=== PATIENT | male | born 1995 | race Caucasian/White ===

== ENCOUNTER 2016-11-12 19:50 | Emergency (ER) | payer BC, OTHER ==
--- NOTE | 2016-11-12 19:52 | PDOC ---
History of Present Illness - General History Source: Patient Exam Limitations: No Limitations - History of Present Illness Initial Comments: 11/12/16 20:17 The patient is a 21 year old male, with no significant past medical history, who presents to the emergency department today complaining of a laceration on left 5th finger that occurred 1 hr ago. Patient states he was doing mechanical work on a car in his garage when he stumbled and hit his left fifth finger on a harvey saw that was sitting on the shelf. He came in today because he doesnt recall his last tetanus shot. Patient states throbbing feeling in finger. Not swollen Denies LOC, fall. Denies fevers, chills, nausea, vomiting Denies numbness or tingling in extremities . Allergies: none reported Surgical Hx: Denies past surgeries Social Hx: Half a pack a day x2 years. Social drinker. Denies illicit drug use. 11/12/16 20:21 Timing/Duration: reports: just prior to arrival <Amanda Johnson - Last Filed: 11/12/16 20:21> <Sybil Davenport - Last Filed: 11/13/16 05:34> - General Chief Complaint: Injury Stated Complaint: I NEED A TETANUS SHOT Time Seen by Provider: 11/12/16 19:51 Past History <Amanda Johnson - Last Filed: 11/12/16 20:21> <Sybil Davenport - Last Filed: 11/13/16 05:34> - Past Medical History Allergies/Adverse Reactions: Allergies Allergy/AdvReac Type Severity Reaction Status Date / Time No Known Allergies Allergy Verified 11/12/16 19:51 Home Medications: Ambulatory Orders NK [No Known Home Medication] 11/12/16 Review of Systems - Review of Systems Able to Perform ROS?: Yes Comments:: 11/12/16 20:18 CONSTITUTIONAL: Absent: fever, no chills, no fatigue EYES: Absent: visual changes ENT: Absent: ear pain, no sore throat CARDIOVASCULAR: Absent: chest pain, no palpitations RESPIRATORY: Absent: cough, no SOB GI: Absent: abdominal pain, no nausea, no vomiting, no constipation, no diarrhea GENITOURINARY: Absent: dysuria, no frequency, no hematuria MUSCULOSKELETAL: Absent: back pain, no arthralgia, no myalgia SKIN: Present: small laceration on left fifth finger without active bleeding Absent: rash NEURO: Absent: headache <Amanda Johnson - Last Filed: 11/12/16 20:21> *Physical Exam - Vital Signs Last Vital Signs Temp Pulse Resp BP Pulse Ox 98.7 F 69 16 133/70 100 11/12/16 19:51 11/12/16 19:51 11/12/16 19:51 11/12/16 19:51 11/12/16 19:51 - Physical Exam Comments: 11/12/16 20:19 GENERAL: The patient is awake, alert, and fully oriented, in no acute distress. HEAD: Normal with no signs of trauma. EYES: Pupils equal, round and reactive to light, extraocular movements intact, sclera anicteric, conjunctiva clear with no pallor. ENT: Ears normal, nares patent, oropharynx clear without exudates. Moist mucous membranes. NECK: Normal range of motion, supple without lymphadenopathy, JVD, or masses. LUNGS: Breath sounds equal, clear to auscultation bilaterally. No crackles. HEART: Regular rate and rhythm, normal S1 and S2 without murmur or rub. ABDOMEN: Soft/nontender/nondistended. BS wnl. No guarding or rebound. No palpable masses. No hepatosplenomegaly. EXTREMITIES: Normal range of motion, no edema. No clubbing or cyanosis. No cords, erythema, or tenderness. NEUROLOGICAL: Cranial nerves II through XII grossly intact. Normal speech, normal gait. PSYCH: Normal mood, normal affect. SKIN: + 2mm superficial non bleeding laceration at ulnar aspect of the distal phalanx of the left fifth finger. Warm, Dry, normal turgor, no rashes or lesions noted. Vascular Pulses: Femoral (R): 4+, Femoral (L): 4+, Carotid (R): 4+, Carotid (L) : 4+, Dorsalis-Pedis (R): 4+, Doralis-Pedis (L): 4+ <Amanda Johnson - Last Filed: 11/12/16 20:21> ED Treatment Course - Medications Given in the ED: ED Medications Discontinued Medications Generic Name Dose Route Start Last Admin Trade Name Freq PRN Reason Stop Dose Admin Diphtheria/Tetanus/Acell Pertussis 0.5 ml 11/12/16 20:08 11/12/16 20:10 Boostrix - IM 11/12/16 20:09 0.5 ml .ONCE ONE Administration <Amanda Johnson - Last Filed: 11/12/16 20:21> Progress Note - Progress Note Progress Note: Documentation has been prepared under my direction and personally reviewed by me in its entirety. I attest that this documented accurately reflects all work, treatment, procedures and medical decision making performed by me. <Sybil Davenport - Last Filed: 11/13/16 05:34> Medical Decision Making - Medical Decision Making As noted above, this 21-year-old man presents with a small, superficial wound to the left fifth finger, sustained when he fell and fifth finger contacted an old harvey saw. No other injury sustained. Patient presents here because he is unsure when his last tetanus immunization was. Physical exam as noted above. Wound was cleansed with sterile normal saline bacitracin/Band-Aid applied. Boostrix 0.5 mL administered IM. Patient instructed to return to the emergency room if he has any difficulty with the healing of the small laceration <Sybil Davenport - Last Filed: 11/13/16 05:34> *DC/Admit/Observation/Transfer - Attestations Scribe Attestion: 11/12/16 20:20 Documentation prepared by MARILEE Hayward, acting as registered medical transcriptionist for Sybil Davenport MD. <Amanda Johnson - Last Filed: 11/12/16 20:21> <Sybil Davenport - Last Filed: 11/13/16 05:34> Diagnosis at time of Disposition: Superficial laceration - Discharge Dispostion Disposition: HOME Condition at time of disposition: Stable - Patient Instructions Printed Discharge Instructions: Tetanus, Diphtheria, Pertussis (Tdap) Vaccine Additional Instructions: neosporin/bacitracin with bandaid to cut for the next 2 days after 2 days, keep wound open return or see your doctor if area becomes red/swollen/tender
[2016-11-12 20:02] VITALS: BP 133/70; PULSE 69; TEMP 98.7; BMI 31.4
[2016-11-12] MEDS ORDERED: DIPHTH,PERTUSS(ACELL),TET 0.5 ML DISP.SYRIN IM ONE (20:08)
== END 2016-11-12 20:29 | disposition home or self-care (01) ==
LOC: FER 19:50
PROC: 3E0234Z Introduction of Serum, Toxoid and Vaccine into Muscle, Percutaneous Approach (ICD-10-PCS; principal; 2016-11-12)
DX: S61.217A Laceration without foreign body of left little finger without damage to nail, initial encounter (principal); W22.8XXA Striking against or struck by other objects, initial encounter; Y93.89 Activity, other specified; Y92.59 Other trade areas as the place of occurrence of the external cause
CPT/HCPCS: 90715; 99281-25

== ENCOUNTER 2018-06-28 20:12 | Emergency (ER) | payer BC ==
[2018-06-28] MEDS ORDERED: KETOROLAC TROMETHAMINE 15 MG/ML VIAL IVPUSH ONE (20:18)
--- NOTE | 2018-06-28 20:19 | PDOC ---
History of Present Illness - General History Source: Patient Exam Limitations: No Limitations - History of Present Illness Initial Comments: 06/28/18 20:46 The patient is a 22 year old male with no past medical history here today for evaluation of left flank pain. The patient reports that his left flank was intermittent but became more constant and radiated from his left flank down to his groin area with the worst pain being today around 5 PM. He reports taking 3 regular strength aspirin prior to his arrival to the ED and notes that his pain has subsided mildly. He notes a similar pain that occurred three years and states that he was diagnosed with an UTI then. Patient denies headache, lightheadedness. Denies fever, chills. Denies chest pain, shortness of breath. Denies nausea, vomiting, diarrhea, abdominal pain. Denies urinary symptoms. Allergies: NKA Social history: Patient reports quitting tobacco use 1 year ago and quitting juul use 5 days ago. <Jose Ram - Last Filed: 06/28/18 20:46> <Dameon Walls - Last Filed: 06/29/18 03:47> - General Chief Complaint: Pain Stated Complaint: LEFT FLANK PAIN Time Seen by Provider: 06/28/18 20:18 Past History <Jose Ram - Last Filed: 06/28/18 20:46> - Past Medical History COPD: No Other medical history: Pt denies - Suicide/Smoking/Psychosocial Hx Smoking History: Former smoker Have you smoked in the past 12 months: Yes Number of Cigarettes Smoked Daily: 10 If you are a former smoker, when did you quit?: 1 yr Information on smoking cessation initiated: No 'Breaking Loose' booklet given: 11/12/16 Hx Alcohol Use: No Drug/Substance Use Hx: No Substance Use Type: None <Dameon Walls - Last Filed: 06/29/18 03:47> - Past Medical History Allergies/Adverse Reactions: Allergies Allergy/AdvReac Type Severity Reaction Status Date / Time No Known Allergies Allergy Verified 06/28/18 20:13 Home Medications: Ambulatory Orders Naproxen 500 mg PO BID PRN #12 tablet 06/28/18 Review of Systems - Review of Systems Able to Perform ROS?: Yes Comments:: 06/28/18 20:46 GENERAL/CONSTITUTIONAL: No fever or chills. No weakness. HEAD, EYES, EARS, NOSE AND THROAT: No change in vision. No ear pain or discharge. No sore throat. CARDIOVASCULAR: No chest pain or shortness of breath. RESPIRATORY: No cough, wheezing, or hemoptysis. GASTROINTESTINAL: No nausea, vomiting, diarrhea or constipation. GENITOURINARY: No dysuria, frequency, or change in urination. MUSCULOSKELETAL: +left flank pain. No joint or muscle swelling or pain. No neck. SKIN: No rash NEUROLOGIC: No headache, vertigo, loss of consciousness, or change in strength/ sensation. ENDOCRINE: No increased thirst. No abnormal weight change. HEMATOLOGIC/LYMPHATIC: No anemia, easy bleeding, or history of blood clots. ALLERGIC/IMMUNOLOGIC: No hives or skin allergy. <Jose Ram - Last Filed: 06/28/18 20:46> *Physical Exam - Vital Signs Last Vital Signs Temp Pulse Resp BP Pulse Ox 98.0 F 71 18 147/92 99 06/28/18 20:14 06/28/18 20:14 06/28/18 20:14 06/28/18 20:14 06/28/18 20:14 - Physical Exam Comments: 06/28/18 20:36 GENERAL: Awake, alert, and fully oriented, in no acute distress HEAD: No signs of trauma EYES: PERRLA, EOMI, sclera anicteric, conjunctiva clear ENT: Auricles normal inspection, hearing grossly normal, nares patent, oropharynx clear without exudates. Moist mucosa NECK: Normal ROM, supple, no lymphadenopathy, JVD, or masses LUNGS: Breath sounds equal, clear to auscultation bilaterally. No wheezes, and no crackles HEART: Regular rate and rhythm, normal S1 and S2, no murmurs, rubs or gallops ABDOMEN: +Left CVA tenderness. Soft, nontender, normoactive bowel sounds. No guarding, no rebound. No masses EXTREMITIES: Normal range of motion, no edema. No clubbing or cyanosis. No cords, erythema, or tenderness NEUROLOGICAL: Cranial nerves II through XII grossly intact. Normal speech, normal gait SKIN: Warm, Dry, normal turgor, no rashes or lesions noted. <Jose Ram - Last Filed: 06/28/18 20:46> - Vital Signs Last Vital Signs Temp Pulse Resp BP Pulse Ox 98.0 F 71 18 147/92 99 06/28/18 20:14 06/28/18 20:14 06/28/18 20:14 06/28/18 20:14 06/28/18 20:14 <Dameon Walls - Last Filed: 06/29/18 03:47> Moderate Sedation - Procedure Monitoring Vital Signs: Procedure Monitoring Vital Signs Temperature 98.0 F 06/28/18 20:14 Pulse Rate 71 06/28/18 20:14 Respiratory Rate 18 06/28/18 20:14 Blood Pressure 147/92 06/28/18 20:14 O2 Sat by Pulse Oximetry (%) 99 06/28/18 20:14 <Jose Ram - Last Filed: 06/28/18 20:46> - Procedure Monitoring Vital Signs: Procedure Monitoring Vital Signs Temperature 98.0 F 06/28/18 20:14 Pulse Rate 71 06/28/18 20:14 Respiratory Rate 18 06/28/18 20:14 Blood Pressure 147/92 06/28/18 20:14 O2 Sat by Pulse Oximetry (%) 99 06/28/18 20:14 <Dameon Walls - Last Filed: 06/29/18 03:47> Medical Decision Making - Medical Decision Making 06/29/18 03:47 hx and PE cw uretrocolic nsaids fluid gu fu <Dameon Walls - Last Filed: 06/29/18 03:47> *DC/Admit/Observation/Transfer - Attestations Scribe Attestion: 06/28/18 20:37 Documentation prepared by MARILEE Andersen, acting as medical office worker for Dameon Walls MD. <Jose Ram - Last Filed: 06/28/18 20:46> <Dameon Walls - Last Filed: 06/29/18 03:47> Diagnosis at time of Disposition: Kidney stone - Discharge Dispostion Disposition: HOME - Prescriptions Prescriptions: Naproxen 500 mg PO BID PRN #12 tablet PRN Reason: Pain - Referrals Referrals: Jigar Grace MD [Staff Physician] - Call tomorrow - Patient Instructions Printed Discharge Instructions: Kidney Stones -- Adult
[2018-06-28 20:23] VITALS: BP 147/92; PULSE 71; TEMP 98; BMI 31.4
[2018-06-28] MEDS ORDERED: KETOROLAC TROMETHAMINE 15 MG/ML VIAL ONE (20:29)
[2018-06-28] MEDS ORDERED: SODIUM CHLORIDE 0.9% 500 ML INFUS.BAG IV ONE (20:41)
== END 2018-06-28 23:02 | disposition home or self-care (01) ==
LOC: FER 20:12
PROC: 3E0333Z Introduction of Anti-inflammatory into Peripheral Vein, Percutaneous Approach (ICD-10-PCS; principal; 2018-06-28)
PROC: 3E0337Z Introduction of Electrolytic and Water Balance Substance into Peripheral Vein, Percutaneous Approach (ICD-10-PCS; 2018-06-28)
DX: N20.0 Calculus of kidney (principal); Z87.891 Personal history of nicotine dependence
CPT/HCPCS: 99284-25